=== PATIENT | female | born 1995 | race Caucasian/White ===

== ENCOUNTER 2018-01-02 07:32 | Emergency (ER) | payer BC ==
[2018-01-02 07:43] VITALS: BP 125/72; PULSE 87; TEMP 97.3; BMI 18.8
--- NOTE | 2018-01-02 08:04 | PDOC ---
History of Present Illness <Frankie Nunez - Last Filed: 01/02/18 08:00> - General History Source: Patient, Family Exam Limitations: No Limitations - History of Present Illness Initial Comments: 01/02/18 08:04 The patient is a 22 year old female, with no significant PMH, who presents to the emergency department for evaluation s/p fall while ice skating one hour ago. The patient states she was ice skating when her legs slide out from under her and she fell backwards onto her side and then hit the back of her head. She denies any loss of consciousness. The patient states she is able to recall all events preceding and after the fall. The patient states after the fall she applied ice to the back of her head. The patient denies any complaints. As per patients mother, she wanted the patient to come to the ED for evaluation secondary to the fall. The patient denies chest pain, shortness of breath, headache and dizziness. Denies nausea, or vomiting. Denies any blurry vision, double vision or photophobia. Denies any neck pain, back pain or bowel/ bladder incontinence. Denies any loss of consciousness, difficulty concentrating or difficulty speaking. Allergies: NKA Past surgical history: None reported Social history: No reported <Bean Kaufman - Last Filed: 01/02/18 08:05> - General Chief Complaint: Pain Stated Complaint: PAIN Time Seen by Provider: 01/02/18 07:40 Past History - Past Medical History COPD: No Thyroid Disease: No - Suicide/Smoking/Psychosocial Hx Smoking History: Never smoked Have you smoked in the past 12 months: No Information on smoking cessation initiated: No Hx Alcohol Use: No Drug/Substance Use Hx: No Substance Use Type: None <Frankie Nunez - Last Filed: 01/02/18 08:00> <Bean Kaufman - Last Filed: 01/02/18 08:05> - Past Medical History Allergies/Adverse Reactions: Allergies Allergy/AdvReac Type Severity Reaction Status Date / Time No Known Allergies Allergy Verified 01/02/18 07:38 Home Medications: Ambulatory Orders NK [No Known Home Medication] 01/02/18 Review of Systems - Review of Systems Constitutional: No: Chills, Fever HEENTM: No: Recent change in vision Cardiac (ROS): No: Syncope ABD/GI: No: Nausea, Vomiting Neurological: No: Headache, Tingling, Weakness, Ataxia All Other Systems: Reviewed and Negative <BelemchantellFrankie - Last Filed: 01/02/18 08:00> *Physical Exam - Vital Signs Last Vital Signs Temp Pulse Resp BP Pulse Ox 97.3 F L 87 16 125/72 100 01/02/18 07:34 01/02/18 07:34 01/02/18 07:34 01/02/18 07:34 01/02/18 07:34 <Frankie Nunez - Last Filed: 01/02/18 08:00> - Vital Signs Last Vital Signs Temp Pulse Resp BP Pulse Ox 97.3 F L 87 16 125/72 100 01/02/18 07:34 01/02/18 07:34 01/02/18 07:34 01/02/18 07:34 01/02/18 07:34 - Physical Exam Comments: 01/02/18 08:04 General: Patient is alert and in no acute distress. Speech is clear and appropriate. Head: Atraumatic and nontender. HEENT: Pupils are equal round and reactive to light, extraocular movements are intact. The tympanic membranes are clear, no hemotympanum. No facial deformity/ tenderness, no septal hematoma. The oropharynx is clear. Neck: The trachea is midline, there is no stridor. There is no midline cervical spine tenderness, full range of motion of neck. Chest: Nontender, no ecchymosis or abrasions. Heart: S1-S2, regular rate and rhythm. No murmurs. Lungs: Clear to auscultation bilaterally. Symmetric chest rise. Abdomen: Soft/nontender/nondistended. Bowel sounds are normal. There is no abdominal or flank ecchymosis. Back/Pelvis: There is no midline spine tenderness or step-off. Pelvis is stable and nontender. Extremities: There is no extremity deformity or joint swelling. No focal bony tenderness throughout. 2+ distal pulses throughout. Neuro: Alert and oriented x3. Cranial nerves II through XII are intact. 5 out of 5 motor strength x4 extremities. [id number] is intact. No pronator drift. Gait is stable. Skin: No abrasions/hematomas/lacerations. Psych: Affect is appropriate. <Bean Kaufman - Last Filed: 01/02/18 08:05> Medical Decision Making - Medical Decision Making 01/02/18 08:00 A portion of this note was documented by scribe services under my direction. I have reviewed the details of the note, within reason, and agree with the documentation with the following case summary and management plan written by me. Healthy 22-year-old female with no severe past medical history presents with occipital head injury after slip and fall while ice skating. Landed on her side , then struck the back of her head. There was no loss of consciousness, no vision change/speech change/nausea/vomiting/neck pain/focal deficit/confusion. No photophobia, not on blood thinners, presents for evaluation with her mom, a die storage clerk in this hospital. She is completely asx and has no head pain or headache. VSS well appearing with normal trauma and neuro exam Healthy 22-year-old female with minor occipital headache injury and no red flags on history or physical exam. Reassured, discussed concussion precautions and return criteria No indication for emergent imaging <Frankie Nunez - Last Filed: 01/02/18 08:00> *DC/Admit/Observation/Transfer <Frankie Nunez - Last Filed: 01/02/18 08:00> - Attestations Scribe Attestion: 01/02/18 08:05 Documentation prepared by Bean Kaufman, acting as medical data analyst for Frankie Nunez MD. <Bean Kaufman - Last Filed: 01/02/18 08:05> Diagnosis at time of Disposition: Closed head injury Qualifiers: Encounter type: initial encounter Qualified Code(s): S09.90XA - Unspecified injury of head, initial encounter - Discharge Dispostion Disposition: HOME Condition at time of disposition: Stable - Referrals Referrals: Peter Garcia DO [Staff Physician] - - Patient Instructions Printed Discharge Instructions: DI for Concussion, DI for Closed Head Injury Additional Instructions: Stay hydrated. Tylenol 1000 mg every 8 hours and/or ibuprofen 600 mg every 8 hours as needed for pain. If you develop the symptoms of a concussion, it is recommended that you have physical rest, avoiding any activities that may increase the likelihood of you reinjuring your head. Cognitive rest is also recommended, avoid prolonged monitor exposure, reading, or loud noises. You should follow up with your primary doctor and/or a neurologist as needed regarding today's emergency department visit. Consider calling Dr. Garcia for neurology. Return to the emergency department for any new or concerning symptoms, particularly worsening headache, vomiting or confusion, worsening sleepiness, focal weakness. If these occur, the CAT scan may be necessary.
== END 2018-01-02 08:00 | disposition home or self-care (01) ==
LOC: JER 07:32
DX: S09.8XXA Other specified injuries of head, initial encounter (principal); W00.0XXA Fall on same level due to ice and snow, initial encounter; Y93.21 Activity, ice skating; Y92.330 Ice skating rink (indoor) (outdoor) as the place of occurrence of the external cause; Y99.8 Other external cause status
CPT/HCPCS: 99281-25